=== PATIENT | female | born 1985 | race African-American/Black ===

== ENCOUNTER 2022-04-23 18:40 | Outpatient (CLI) | payer MEDICAID, SELFPAY | END 2022-04-23 18:41 | disposition home or self-care (01) | LOC: LKVREF 04-25 09:31 | PROVIDERS: Visit Provider Nurse Practitioner Family | DX: Z01.419 Encounter for gynecological examination (general) (routine) without abnormal findings (principal); R30.0 Dysuria; N39.0 Urinary tract infection, site not specified | CPT/HCPCS: 87086; 87186 ==